=== PATIENT | male | born 1970 | race Hispanic/Latino ===

== ENCOUNTER → 2025-06-06 | Day surgery (SDC) | payer OTHER ==
[~2025-06-06] MED LIST: LIDOCAINE HCL 2% LOCAL INJ 5 ML SDV VIAL INJ ONE; LOSARTAN POTASS25 MG PO; MIDAZOLAM HCL 2 MG/2 ML VIAL ONE; PROPOFOL IV EMULSION 10 MG/ML 20 ML VIAL ONE
[2025-06-06] MEDS: LACTATED RINGER'S 1,000 ML ONE (11:58)
[2025-06-06 12:09] VITALS: TEMP 97
[2025-06-06 12:35] VITALS: BP 131/78; PULSE 50; RESP 18; O2SAT 99
== END | disposition home or self-care (01) ==
LOC: OR 11:00
PROVIDERS: ATTEND Internal Medicine Gastroenterology
DX: Z12.11 Encounter for screening for malignant neoplasm of colon (principal); D12.3 Benign neoplasm of transverse colon; K64.8 Other hemorrhoids; I10 Essential (primary) hypertension; R00.1 Bradycardia, unspecified; Z79.899 Other long term (current) drug therapy
CPT/HCPCS: 45384; 93005; J2003; J2250; J2704; J7121; 45378